=== PATIENT | female | born 1950 | race Caucasian/White ===

== ENCOUNTER 2023-02-18 15:52 | Emergency (ER) | payer MEDICARE ==
[~2023-02-18] VITALS: Ht 165.1 cm; Wt 58.5 kg
[2023-02-18] MEDS ORDERED: PREV30TA3 PO (16:04)
[2023-02-18] MEDS ORDERED: MONT10TA97 PO (16:04)
[2023-02-18] MEDS ORDERED: MV-M1TAB13 PO (16:04)
[2023-02-18] MEDS ORDERED: BUPR150T12 PO (16:04)
[2023-02-18] MEDS ORDERED: MAGO400T2 PO (16:04)
[2023-02-18] MEDS ORDERED: ELIQ5TAB PO (16:04)
[2023-02-18 17:30] LABS: BASO # 0.1 10^3/uL (0.0-0.2); BASO % 0.5 % (0.0-1.0); EOS # 0.1 10^3/uL (0.0-0.5); EOS % 1.1 % (0.0-3.0); HEMOGLOBIN 14.6 g/dl (12.0-15.5); LYMPH # 1.7 10^3/uL (1.5-5.0); LYMPH % 16.7 % (24.0-44.0); MEAN CORPUSCULAR HEMOGLOBIN 31.2 pg (27.0-33.0); MEAN CORPUSCULAR VOLUME 91.9 fl (80.0-96.0); MONO # 0.6 10^3/uL (0.0-0.8); MONO % 5.3 % (2.0-8.0); NEUTROPHILS # 7.8 10^3/uL (1.5-8.5); NEUTROPHILS % 76.2 % (36.0-66.0); PLATELET COUNT, AUTOMATED 247 10^3/uL (150-450); RED BLOOD COUNT 4.68 10^6/uL (4.00-5.40); WHITE BLOOD COUNT 10.3 10^3/uL (4.0-10.0)
[2023-02-18 17:51] LABS: BLOOD UREA NITROGEN 13 MG/DL (9-23); CALCIUM LEVEL 10.3 MG/DL (8.3-10.6); CARBON DIOXIDE LEVEL 30 MMOL/L (20-31); CHLORIDE LEVEL 103 MMOL/L (98-107); CREATININE FOR GFR 0.59 MG/DL (0.55-1.30); GLOMERULAR FILTRATION RATE > 60.0 (>39); GLUCOSE, FASTING 79 MG/DL (74-106); POTASSIUM SERUM 3.9 MMOL/L (3.5-5.1); SODIUM LEVEL 139 MMOL/L (136-145)
[2023-02-18] MEDS ORDERED: ONDANSETRON 4MG 2ML VIAL IV ONE (18:05)
[2023-02-18] MEDS ORDERED: ACETAMINOPHEN 1000MG 100ML IV BAG IV ONE (18:05)
[2023-02-18] MEDS ORDERED: ISOVUE-370 76% 100ML VIAL As Ordered ONE (18:18)
[2023-02-18] MEDS ORDERED: NITROFURANTOIN (MACROBID) 100 MG CAP PO ONE (19:45)
[2023-02-18] MEDS ORDERED: TRAM50TA2 PO (19:47)
[2023-02-18] MEDS ORDERED: MACR100C43 PO (19:47)
[2023-02-18 19:57] VITALS: BP 120/80; TEMP 98.4; O2SAT 99
== END 2023-02-18 20:33 | disposition home or self-care (01) ==
LOC: M ED 15:52 → EDSEX 15:52 → M ED 20:33
DX: S32.010A Wedge compression fracture of first lumbar vertebra, initial encounter for closed fracture (principal); N39.0 Urinary tract infection, site not specified; Z86.79 Personal history of other diseases of the circulatory system; Z90.710 Acquired absence of both cervix and uterus; Z79.01 Long term (current) use of anticoagulants; Z79.899 Other long term (current) drug therapy
CPT/HCPCS: 74177; 80048; 81001; 85025; 87088; 87186; 96374; 99284; J0131; J2405; Q9967